=== PATIENT | female | born 1985 | race Caucasian/White ===

== ENCOUNTER 2017-03-17 17:34 | Emergency (ER) | payer OTHER ==
[2017-03-17] MEDS ORDERED: Tetan/Diph/Pertus SYR(Tdap)* 0.5 ML SYR(BOOSTRIX) use SYR IM ONE (19:53)
--- NOTE | 2017-03-17 19:57 | UC ---
Lower Extremity/Ankle HPI - HPI Summary HPI Summary: 31 y/o female presents to the urgent care c/o Left knee abrasion s/p fall [place] trail [place]. Pt reports she tripped and landed on her LF knee and The forest responder told her she didn't need stiches, but now it is oozing and she thinks there is a small opening on her skin. Pain is 6/10 with movement and 0/10 at rest. Pt can't recall when was the last Tetanus shot. Pt denies fever, SOB, chest pain, N/V/D. Pt has not other complain. - History of Current Complaint Chief Complaint: UCLowerExtremity Stated Complaint: KNEE INJURY Time Seen by Provider: 03/17/17 19:42 Hx Obtained From: Patient Hx Last Menstrual Period: 03/03/17 ?: Yes Onset/Duration: Sudden Onset, Lasting Hours, Still Present Severity Initially: Moderate Severity Currently: Moderate Pain Intensity: 6 - movement Pain Scale Used: 0-10 Numeric Aggravating Factor(s): Other - stretching the left knee Alleviating Factor(s): Rest Able to Bear Weight: Yes - Risk Factors Gout Risk Factors: Negative DVT Risk Factors: Negative Septic Arthritis Risk Factor: Negative - Allergies/Home Medications Allergies/Adverse Reactions: Allergies Allergy/AdvReac Type Severity Reaction Status Date / Time No Known Allergies Allergy Verified 03/17/17 18:04 PMH/Surg Hx/FS Hx/Imm Hx Previously Healthy: Yes - Surgical History Surgical History: None - Family History Known Family History: Positive: Cardiac Disease, Diabetes - Social History Occupation: Employed Full-time Lives: With Family Alcohol Use: Occasionally Substance Use Type: None Smoking Status (MU): Never Smoked Tobacco Review of Systems Constitutional: Negative Skin: Other - LF knee abrasion s/p fall Eyes: Negative ENT: Negative Respiratory: Negative Cardiovascular: Negative Gastrointestinal: Negative Genitourinary: Negative Motor: Negative Neurovascular: Negative Musculoskeletal: Negative Neurological: Negative Psychological: Negative All Other Systems Reviewed And Are Negative: Yes Physical Exam Triage Information Reviewed: Yes Appearance: Well-Appearing, No Pain Distress, Well-Nourished, Thin Vital Signs: Initial Vital Signs Temp 99.8 F 03/17/17 17:59 Pulse 78 03/17/17 17:59 Resp 18 03/17/17 17:59 BP 105/59 03/17/17 17:59 Pulse Ox 100 03/17/17 17:59 Vital Signs Reviewed: Yes Eye Exam: Normal Eyes: Positive: Conjunctiva Clear - PERRLA, EOMI, fundi grossly normal ENT Exam: Normal ENT: Positive: Normal ENT inspection, Hearing grossly normal, Pharynx normal, TMs normal Dental Exam: Normal Neck exam: Normal Neck: Positive: Supple, Nontender, No Lymphadenopathy Respiratory Exam: Normal Respiratory: Positive: Chest non-tender, Lungs clear, Normal breath sounds Cardiovascular Exam: Normal Cardiovascular: Positive: RRR, No Murmur Abdominal Exam: Normal Abdomen Description: Positive: Nontender, No Organomegaly, Soft. Negative: CVA Tenderness (R), CVA Tenderness (L) Bowel Sounds: Positive: Present Musculoskeletal Exam: Normal Musculoskeletal: Positive: Strength Intact, ROM Intact, No Edema Neurological Exam: Normal Psychological Exam: Normal Skin: Positive: significant lesion(s) - Left knee with an abrasion on top of the patella and small laceration on top of LF patella 1.5cm in size with mild swelling and mildly bleeding. Tender to palpation. FROM of knee. Positive pulses, capillary refill and sesnsation intact. Lower Extremity Course/Dx - Course Course Of Treatment: 31 y/o female presents to the urgent care c/o Left knee abrasion s/p fall while running in a trail this morning. Pt reports she tripped and landed on her LF knee and The forest responder told her she didn't need stiches, but now it is oozing and she thinks there is a small opening on her skin. Pain is 6/10 with movement and 0/10 at rest. Pt can't recall when was the last Tetanus shot. Pt denies fever, SOB, chest pain, N/V/D.Hx obtained. PE abnormal findings:Left knee with an abrasion on top of the patella and small laceration on top of LF patella 1.5cm in size with mild swelling and mildly bleeding. Tender to palpation. FROM of knee. Positive pulses, capillary refill and sesnsation intact. Pt not up to date with Tetanus vaccine. Ordered and Given by the nurse in left arm Tdap. Pt tolerated well inj. Laceration procedure: Copious irrigation was done with saline and the wound explored. Superficial laceration. No foreing body observed. Time out was perfomed, procedure was explained and consent obtained. The wound was anesthetized with 3mL of 1% Lidocaine with good anesthesia. Sterile drape and prep were done. There were 2 sutures 4.0 Nylon of sutures. The length of the wound after closure was 1cm. No debridement done. Bacitracin applied in wound was covered with sterile nonadherent dressing. The Pt tolerated the procedure well without adverse effects. Neurovascular intact and FROM of knee. DR Leblanc agreed with procedure. Pt Rx Keflex since dirty wound. Pt advised if signs of infection develop despite ABX to return to the urgent care or her PCP for further treatment. Pt understood and left the clinic ambulating. - Differential Dx/Diagnosis Differential Diagnosis/HQI/PQRI: Contusion, Puncture Wound, Sprain Provider Diagnoses: 1- Left knee with laceration and abrasion Discharge - Discharge Plan Condition: Stable Disposition: HOME Prescriptions: Cephalexin CAP* [Keflex CAP*] 500 mg PO TID #21 cap Patient Education Materials: Care For Your Stitches (ED), Laceration (ED) Referrals: [facility] [Outside] No Primary Care Phys,NOPCP [Primary Care Provider] - Additional Instructions: please keep wound dry and clean, apply Bacitracin ointment TID. Take medications as instructed and finish the full course of treatment to avoid recurrent infection. If you do not improve or if symptoms worsen after the course of antibiotics, you should either follow up with your PCP or return to the urgent care for further evaluation and treatment. F/u for suture removal in 10 days with your PCP or return to the clinic.
[2017-03-17] MEDS ORDERED: Cephalexin CAP* 500 MG PO ONE (20:05)
[2017-03-17] MEDS ORDERED: Lidocaine 1% MPF* 2 ML VIAL INJ ONE (20:09)
[2017-03-17 21:00] VITALS: BP 109/72
== END 2017-03-17 20:50 | disposition home or self-care (01) ==
LOC: UCEAST 17:34
DX: S81.012A Laceration without foreign body, left knee, initial encounter (principal); W01.10XA Fall on same level from slipping, tripping and stumbling with subsequent striking against unspecified object, initial encounter; Y93.02 Activity, running
CPT/HCPCS: 12001; 90471; 90715; 99202; A9270-GY; G0463